=== PATIENT | male | born 1965 | race Asian ===

== ENCOUNTER 2021-09-03 10:54 | Emergency (ER) | payer OTHER, SELFPAY ==
[2021-09-03 11:10] VITALS: BP 109/77; PULSE 51; RESP 16; TEMP 37.2; O2SAT 100
--- NOTE | 2021-09-03 11:25 | ED.LOWEXIN ---
HPI - Extremity Injury (Lower) General Chief Complaint: Extremity Injury, Lower Stated Complaint: RIGHT FOOT PAIN Time Seen by Provider: 09/03/21 11:26 Source: patient Mode of arrival: ambulatory Limitations: no limitations History of Present Illness HPI Narrative: 56-year-old male presenting for complaint of left great toe redness and swelling around the toenail Endorses he has had infections on and off for several years, usually treating with Neosporin and alcohol. Patient endorses pain is only with walking. No pain at rest. Denies drainage to the site. Related Data Allergies Allergy/AdvReac Type Severity Reaction Status Date / Time No Known Allergies Allergy Verified 09/03/21 11:13 Review of Systems Review of Systems: CONSTITUTIONAL: Denies body aches, fever, chills, or sweats. EYES: Denies visual changes, redness, or discharge. CARDIOVASCULAR: Denies chest pain, palpitations, or edema. RESPIRATORY: Denies cough or dyspnea. SKIN: reports redness to toenail MUSCULOSKELETAL: Denies back pain, joint pain, or myalgia. NEUROLOGIC: Denies headache PMFSH Comments At time of signature, I have reviewed and agree with nursing past medical, surgical, social and family history unless otherwise noted. Please see nursing chart for further information. There is no relevant family history pertinent to the presenting complaint Exam Narrative: GENERAL: Well-appearing ENT: Mucous membranes moist. CHEST: Clear to auscultation. HEART: Regular rate and rhythm. SKIN: Warm, dry. Right 1st toe with mild redness and swelling to medial aspect of proximal nail fold, no active drainage or fluctuance, mild tender to palpation c/w paronychia NEURO: Alert and oriented x3. PSYCH: Normal mood and affect Course Course Emergency Course: Patient is aware of diagnosis, understands and agrees to treatment plan. Anticipatory guidance given. Patient agrees to follow-up as directed and is aware of reasons to seek care at the emergency department. Portions of this record may have been created with voice recognition software Level of Care: Express Care Visit Vital Signs Vital signs: Vital Signs Temperature 99.0 F 09/03/21 11:10 Pulse Rate 51 L 09/03/21 11:10 Respiratory Rate 16 09/03/21 11:10 Blood Pressure 109/77 09/03/21 11:10 Pulse Oximetry 100 09/03/21 11:10 Oxygen Delivery Room Air 09/03/21 11:10 Temperature 99.0 F 09/03/21 11:10 Pulse Rate 51 L 09/03/21 11:10 Respiratory Rate 16 09/03/21 11:10 Blood Pressure 109/77 09/03/21 11:10 Pulse Oximetry 100 09/03/21 11:10 Oxygen Delivery Room Air 09/03/21 11:10 Reviewed MDM - Extremity Injury (Lower) MDM Narrative Medical decision making narrative: On exam, patient does not appear to have an ingrown nail at this time, appears to be paronychia. Advised supportive measures, reviewed antibiotic, and signs/symptoms to go to the ER. Pt is appropriate for outpt treatment and f/u. Differential Diagnosis Differential diagnosis: Likely other (Paronychia, abscess, ingrown nail) Discharge Plan Discharge Clinical Impression: Paronychia of great toe Patient Disposition: Home, Self-Care Condition: Stable Instructions: Paronychia (ED) Additional Instructions: Soak the foot in warm soapy water, or use warm water with Epson salt at least twice a day Take the antibiotic as directed Keep the foot elevated when possible Tylenol 1000mg every 8 hours as needed Follow up with your primary care provider as needed in 1-2 weeks Go to the ER for worsening symptoms or concerns Prescriptions: New cephalexin 500 mg capsule 500 mg PO Q12H 7 Days Qty: 14 0RF Follow-up/Referrals: Emil,MD Billy [Primary Care Provider] - Time of Disposition: 11:37
== END 2021-09-03 11:42 | disposition home or self-care (01) ==
PROVIDERS: Emergency Provider Nurse Practitioner Family; PCP Internal Medicine
DX: L03.031 Cellulitis of right toe (principal)
CPT/HCPCS: 99203; G0463

== ENCOUNTER 2023-07-06 12:41 | Outpatient (CLI) | payer OTHER, SELFPAY ==
[2023-07-06 16:56] LABS: Influenza A QL RT-PCR Negative (Negative); Influenza B QL RT-PCR Negative (Negative); RSV RNA, RT-PCR Negative (Negative); SARS-CoV-2 RNA PCR Negative (Negative)
== END 2023-07-06 12:42 | disposition home or self-care (01) ==
PROVIDERS: PCP Emergency Medicine; Visit Provider Emergency Medicine
DX: B34.9 Viral infection, unspecified (principal); Z20.822 Contact with and (suspected) exposure to COVID-19
CPT/HCPCS: 87637

== ENCOUNTER 2023-08-21 01:11 | Day surgery (SDC) | payer OTHER, SELFPAY ==
[2023-07-06 10:36] VITALS: BMI 22.7
[2023-08-14 14:08] VITALS: BMI 22.7
[2023-08-21 13:20] VITALS: BP 101/66; PULSE 57; RESP 17; TEMP 36.2; O2SAT 98; BMI 21.2
--- NOTE | 2023-08-21 13:28 | WPDANESEPPF ---
Anes - Initial Pre Proc Eval Procedure: Operation Date: 08/21/23 14:30 Proposed Procedures p Colonoscopy - Lauro Friedman MD Date/Time: 08/21/23 13:28 Surgeon: Lauro Friedman MD Pre Op Diagnosis: IBS-D Patient Data Age: 58 Gender: M Height: 1.7 m Weight: 61.4 kg Last Vital Signs Temp 97.2 F L 08/21/23 13:20 Pulse 57 L 08/21/23 13:20 Resp 17 08/21/23 13:20 BP 101/66 08/21/23 13:20 Pulse Ox 98 08/21/23 13:20 O2 Del Method Room Air 08/21/23 13:20 Allergies Allergy/AdvReac Type Severity Reaction Status Date / Time No Known Allergies Allergy Verified 08/21/23 13:18 Home Medications Medication Instructions Recorded Confirmed Type No Home Medications 08/14/23 08/21/23 History Patient hx anesthesia problems: none Family hx anesthesia problems: none Results Review: All pre-operative results and documents have been reviewed as part of the pre-operative evaluation. [facility] Social History Social History Smoking status: Never smoker Alcohol intake: never Substance use: never Substance use type: does not use Living arrangements: with family Spiritual care concerns: No Anes - Eval Final PreProcedure Day of Procedure 08/21/23 13:28 Patient weight: normal Heart: regular rate and rhythm Lungs: clear to auscultation Airway: Mallampati scale class II Neurological: alert and oriented Last oral intake: >/= 8 hours ASA classification: I Emergent: no Anesthetic plan: proceed Anesthesia type and monitoring: general GIVS and standard monitoring Results Review: All pre-operative results and documents have been reviewed as part of the pre-operative evaluation. Informed Consent: The patient's anesthetic plan and its attendant risks and benefits were discussed with the patient/family/POA. Questions were solicited and answers provided to the satisfaction of the patient/family/POA.
[2023-08-21] MEDS: LACTATED RINGERS 1,000 ML 150 ML IV CONT (13:31)
--- NOTE | 2023-08-21 13:36 | HP_ITS ---
This report was moved to the correct visit on 08/28/2023. The original report was signed by Lauro Friedman MD on 08/21/231. History of Present Illness History of Present Illness Consent: Risks, benefits, and alternatives have been discussed and questions answered. Patient agrees to proceed with procedure. Chief complaint: IBS-C Narrative: Leyla Smith is a 58 year old male here for colonoscopy, last one more than 5 years ago, recently with constipation Review of Systems Review of Systems: All systems reviewed & are unremarkable except as noted in HPI and below PMFSH Past Medical History Medical History (Updated 08/21/23 @ 13:36 by Lauro Friedman MD) Constipation Social History Social History Smoking status: Never smoker Alcohol intake: never Substance use: never Substance use type: does not use Living arrangements: with family Spiritual care concerns: No Meds Home Medications and Allergies Home Medications Medication Instructions Recorded Confirmed Type No Home Medications 08/14/23 08/21/23 History Allergies Allergy/AdvReac Type Severity Reaction Status Date / Time No Known Allergies Allergy Verified 08/21/23 13:18 Exam Const: General: comfortable and no acute distress HENMT: Face/Nose/Sinus: Normal nares present Eyes: General: appearance normal, both eyes and all related structures Neck: Neck: no JVD Resp: Auscultation: clear to auscultation bilaterally Cardio: Rate: regular rate Rhythm: regular rhythm GI: Inspection: non-distended GI Palp: Yes Soft to palpation Skin: General skin exam: normal color Neuro: General: gait normal Speech: normal speech Extrem: General: normal to inspection Psych: Mental Status: mental status grossly normal Assessment and Plan Assessment and plan (1) Constipation: Code(s): K59.00 - Constipation, unspecified Status: Acute Assessment and Plan: colonoscopy This report may have been done utilizing a voice recognition system. Attempts have been made to correct errors. However, there may be uncorrected grammatical, spelling, and recognition errors present. Report Initialized date/time: Lauro Friedman MD 08/21/231335 Electronically signed by: Lauro Friedman MD 08/21/231335 [facility]
[2023-08-21 13:47] VITALS: BP 95/63; PULSE 62; RESP 17; O2SAT 97
[2023-08-21 13:57] VITALS: BP 88/63; PULSE 62; RESP 17; O2SAT 98
[2023-08-21 14:05] VITALS: BP 91/62; PULSE 60; RESP 17; O2SAT 98
== END 2023-08-21 14:23 | disposition home or self-care (01) ==
PROVIDERS: PCP Emergency Medicine; Referring Provider Internal Medicine; Visit Provider Internal Medicine Gastroenterology
PROC: 0DJD8ZZ Inspection of Lower Intestinal Tract, Via Natural or Artificial Opening Endoscopic (ICD-10-PCS; CPT 45378; principal; 2023-08-21 14:30)
DX: K58.1 Irritable bowel syndrome with constipation (principal); D12.5 Benign neoplasm of sigmoid colon; K64.8 Other hemorrhoids
CPT/HCPCS: 45385; 88305; J2704; J7120

== ENCOUNTER 2025-01-17 07:41 | Outpatient (CLI) | payer OTHER, SELFPAY ==
--- NOTE | ~2025-01-17 | CT_ITS ---
Leyla Smith EXAMINATION: CT abdomen pelvis w con COMPARISON: Comparison 07/23/2004. HISTORY: Lower abd pain TECHNIQUE: Axial images were obtained through the abdomen, pelvis post administration of IV contrast. Oral contrast was also administered. Coronal reconstruction images were obtained from the axial views. CT scan performed using dose optimization techniques including the following automated exposure control; adjustment of mA and/or kV; use of iterative reconstruction technique. Automatic exposure control was used to reduce radiation dose. Permanent radiation dose record is archived to PACS. FINDINGS: CT abdomen: LUNG BASES: The lung bases are clear. The visualized portions of the heart and pericardium are unremarkable. LIVER: Within the liver there are innumerable simple and complex appearing liver cysts the largest complex cyst right lobe liver 2.5 x 2.5 cm. The portal vein is patent. There is no intrahepatic biliary duct dilatation. SPLEEN: Unremarkable. KIDNEYS: Right Kidney: Right kidney subcentimeter probable renal cysts. Left Kidney: Left kidney midpole simple appearing parapelvic renal cyst 4 x 4 cm. ADRENAL GLANDS: Unremarkable. PANCREAS: Unremarkable. GALLBLADDER/BILIARY: Unremarkable. No biliary dilatation. STOMACH AND ESOPHAGUS: The stomach is decompressed. BOWEL/MESENTERY: Moderate fecal content, no colitis or diverticulitis. Appendix normal. Mesentery normal. No thickened or dilated loops of small bowel. ADENOPATHY/RETROPERITONEUM: No lymphadenopathy. AORTA/VASCULATURE: Normal caliber aorta. FREE FLUID OR FREE AIR: No free fluid.. CT pelvis: SOLID ORGANS/REPRODUCTIVE: Prostate enlarged correlate with PSA. BLADDER: Circumferential thickening of the bladder wall noted. OSSEOUS STRUCTURES: No acute osseous abnormality.No suspicious lesions. OVERLYING SOFT TISSUES: Unremarkable. IMPRESSION: 1. Mild cystitis. Incidental findings detailed above Reviewed, dictated and finalized at location P. [employer]
--- NOTE | ~2025-01-17 | US_ITS ---
US thyroid INDICATION: Thyroid nodule seen on CT TECHNIQUE: Real-time sonographic images of the thyroid gland were obtained. COMPARISON: No prior studies for comparison. FINDINGS: The right thyroid lobe measures 5.2 x 1.2 x 1.2 cm. There is 2 mm cyst in the right lobe. Left lobe measures 4.7 x 1.5 x 1.0 cm with no discrete mass. Surrounding soft tissues are unremarkable.. IMPRESSION: 1. Unremarkable thyroid without suspicious nodule or abnormal vascularity. Reviewed, dictated and finalized at location I. SAWYER
--- OUTSIDE RECORDS SUMMARY | 2025-01-17 07:45 | XMS_ITS | Data Portability ---
Author Organization [place] [facility] [employer], Main Office Address [address] [place] [address] Assessment Encounter Date Assessment Date Assessment LastModified by Organization Details LastModified Time 04/29/2022 04/29/2022 Follow-up in 6 months blood work ordered [email or web address] Not available 04/29/2022 21:57:57 10/28/2022 10/28/2022 Will get thyroid ultrasound his mother and his sister have had thyroid cancer blood work has been ordered follow-up in 6 months [email or web address] Not available 10/28/2022 22:24:44 Plan of Treatment Reminders Order Date Submit Date Provider Last Modified By Organization Details Last Modified Time Details Appointments None recorded . Lab PSA, serum or plasma 023 04/30/19 23 [employer] [facility], Jung Otero, [place], [address], 3 05:23:58 CBC w/ auto diff 023 04/30/19 23 [employer] [facility], Jung Otero, [place], [address], 3 05:23:57 CMP, serum or plasma 023 04/30/19 23 [employer] [facility], Jung Otero, [place], [address], 3 05:23:56 lipid panel, serum 023 04/30/19 23 [employer] [facility], Jung Otero, [place], [address], 3 05:23:53 Referral None recorded . Procedures None recorded . Surgeries None recorded . Imaging None recorded . Medication Orders None recorded . Patient TargetsNo targets recorded. Patient InstructionsNo instructions recorded. Reason for Referral None Reported. Results Created Date Observation Date Name Description Value Unit Range Abnormal Flag Note LastModifiedBy Organization Detail LastModifiedTime 07/18/19 22 07/17/2021 COLOG UARD cologuard result reportable negati ve negati ve NEGAT JAMMIE TEST RESUL T. A negat jammie Colog uard resul t indic ates a low likel ihood that a color ectal cance r (CRC) or advan jaya adeno ma (geri omato us polyp s with more advan jaya pre-m align ant featu res) is prese nt. The [facility] [place] e that a perso n with a negat jammie Colog uard test has a color ectal cance r is less than 1 in 1500 (nega tive predi ctive value >99.9 %) or has an advan jaya adeno ma is less than 5.3% (nega tive predi ctive value 94.7% ). These data are based on a prosp ectiv e cross -sect ional study of 10,00 0 indiv idual s at [place] risk for color ectal cance r who were scree isidra with both Colog uard and colon oscop y. (Kostas Briggs et al, N Engl J Med 2014; 370(1 4):12 86-12 97) The tyesha l value (refe rence range ) for this assay is negat jammie. COLOG UARD RE-SC ANEL DC RECOM MENDA TION: Perio dic color ectal cance r scree karis is an impor tant part of preve ntive healt hcare for asymp tomat ic indiv idual s at [place] risk for color ectal cance r. Follo wing a negat jammie Colog uard resul t, the Ameri can Cance r Socie ty and U.S. Multi -Soci ety Task Force scree karis guide lines recom mend a Colog uard re-sc anel dc inter faraz of 3 years . Refer ences : Ameri can Cance r Socie ty Guide line for Color ectal Cance r Scree karis: https ://ww w.can cer.o rg/ca ncer/ colon -rect al-ca ncer/ detec tion- diagn osis- stagi ng/ac s-rec ommen datio ns.ht ml.; Jimmy MENDOZA, Fernando urias CR, Marquise crowley JK, Color ectal Cance r Scree karis: Recom menda tions for Physi cians and Patie nts from the U.S. Multi -Soci ety Task Force on Color ectal Cance r Scree karis , Am J Nela oente rolog y 2017; 112:1 016-1 030. TEST DESCR IPTIO N: [place] site algor ithmi c denise sis of stool DNA-b bart daniels with hemog lobin immun oassa y. Quant itati ve value s of indiv idual bioma rkers are not repor table and are not assoc iated with indiv idual bioma rker resul t refer ence range s. Colog uard is inten ded for color ectal cance r scree karis of adult s of eithe r sex, 45 years or older , who are at [facility] for color ectal cance r (CRC) . Colog uard has been appro vincent for use by the U.S. FDA. The perfo rmanc e of Colog uard was estab lishe d in a cross secti onal study of [facility] adult s aged 50-84 . Colog uard perfo rmanc e in patie nts ages 45 to 49 years was estim ated by sub-g roup denise sis of near- age group s. Colon oscop ies perfo rmed for a posit jammie resul t may find as the most clini robbi signi reina malloy n: color ectal cance r [4.0% ], advan jaya adeno ma (incl uding sessi le oscar jose polyp s great er than or equal to 1cm diame ter) [20%] or non- advan jaya adeno ma [31%] ; or no color ectal neopl sherrie [45%] . These estim ates are deriv ed from a prosp ectiv e cross -sect ional scree karis study of 0 indiv idual s at [place] ge risk for color ectal cance r who were scree isidra with both Colog uard and colon oscop y. (Kostas Hernandez al, N Engl J Med 2014; 370(1 4):12 86-12 97.) Colog uard may produ ce a false negat jammie or false posit jammie resul t (no color ectal cance r or preca ncero us polyp prese nt at colon oscop y follo w up). A negat jammie Colog uard test resul t does not guara ntee the absen ce of CRC or advan jaya adeno ma (pre- cance r). The curre nt Colog uard scree karis inter faraz is every 3 years . (Amer ican Cance r Socie ty and U.S. Multi -Soci ety Task Force ). Colog uard perfo rmanc e data in a 0 patie nt pivot al study using colon oscop y as the refer ence metho d can be acces sed at the follo wing locat ion: www.e xactl abs.c om/re sullilibeth . Addit ional descr iptio n of the Colog uard test proce ss, warni ngs and preca ution s can be found at www.c sharon foxd.c om. Not Available [facility] [address], [place], [address], 07/20/2021 22:43:26 05/02/19 23 05/02/2022 LIPID PANEL , STAND GERALDO cholesterol, total 176 mg/dL <200 normal Not Available [facility] [address] [place], [address], 05/02/2022 05:23:53 05/02/19 23 05/02/2022 LIPID PANEL , STAND GERALDO HDL cholesterol 51 mg/dL > or = 40 normal Not Available [facility] [address] [place], [address], 05/02/2022 05:23:53 05/02/19 23 05/02/2022 LIPID PANEL , STAND GERALDO triglyceride s 118 mg/dL <150 normal Not Available [facility] [id number] [place] [address], [address], 05/02/2022 05:23:53 05/02/19 23 05/02/2022 LIPID PANEL , STAND GERALDO LDL-choleste rol 104 mg/dL _(mayra c) high Refer ence range : <100 Niru able range <100 mg/dL for prima ry preve ntion ; <70 mg/dL for patie nts with CHD or diabe tic patie nts with > or = 2 CHD risk facto rs. LDL-C is now calcu lated using the Ethel n-Hop kins calcu promise n, which is a valid ated novel metho d provi ding oni r accur acy than the Fried israel equat ion in the estim ation of LDL-C . Ethel mitchell SS et al. RYAN. 2013; 310(1 9): 2061- 2068 (http ://ed ucati on.Qu husseinLucidity (MemberRx). com/f aq/FA Q164) Not Available [facility] [place] [address] [place], [address], 05/02/2022 05:23:53 05/02/19 23 05/02/2022 LIPID PANEL , STAND GERALDO chol/HDLC ratio 3.5 (calc ) <5.0 normal Not Available [facility] [address] [address], [place], [address], 05/02/2022 05:23:53 05/02/19 23 05/02/2022 LIPID PANEL , STAND GERALDO non HDL cholesterol 125 mg/dL _(mayra c) <130 normal For patie nts with diabe fran plus 1 major ASCVD risk facto r, treat ing to a non-H DL-C goal of <100 mg/dL (LDL- C of <70 mg/dL ) is consi dered a thera peuti c optio n. Not Available [employer] [facility] [address] [place], [address], 05/02/2022 05:23:53 05/02/19 23 05/02/2022 COMPR EHENS JAMMIE METAB OLIC PANEL glucose 90 mg/dL 65-99 normal Fasti ng refer ence inter faraz Not Available [address], [address], 05/02/2022 05:23:56 05/02/19 23 05/02/2022 COMPR EHENS JAMMIE METAB OLIC PANEL urea nitrogen (BUN) 15 mg/dL 7-25 normal Not Available [address], [address], 05/02/2022 05:23:56 05/02/19 23 05/02/2022 COMPR EHENS JAMMIE METAB OLIC PANEL creatinine 0.87 mg/dL 0.70-1 .30 normal Not Available [address], [address], 05/02/2022 05:23:56 05/02/19 23 05/02/2022 COMPR EHENS JAMMIE METAB OLIC PANEL eGFR 99 mL/mi n/1.7 3m2 > or = 60 normal The eGFR is based on the CKD-E PI 2020 equat ion. To calcu late the new eGFR from a previ ous Creat inine or Cysta tin C resul t, go to https ://eleanor sanford.luis alfredo galicia/osvaldo ambriz s/ kdoqi /gfr% 5Fcal culat or Not Available [address], [address], 05/02/2022 05:23:56 05/02/19 23 05/02/2022 COMPR EHENS JAMMIE METAB OLIC PANEL BUN/creatini ne ratio NOT APPLIC ABLE (calc ) 6-22 Not Available [address], [address], 05/02/2022 05:23:56 05/02/19 23 05/02/2022 COMPR EHENS JAMMIE METAB OLIC PANEL sodium 140 mmol/ L 135-14 6 normal Not Available [address], [address], 05/02/2022 05:23:56 05/02/19 23 05/02/2022 COMPR EHENS JAMMIE METAB OLIC PANEL potassium 3.9 mmol/ L 3.5-5. 3 normal Not Available [address], [address], 05/02/2022 05:23:56 05/02/19 23 05/02/2022 COMPR EHENS JAMMIE METAB OLIC PANEL chloride 103 mmol/ L 98-110 normal Not Available [address], [address], 05/02/2022 05:23:56 05/02/19 23 05/02/2022 COMPR EHENS JAMMIE METAB OLIC PANEL carbon dioxide 31 mmol/ L 20-32 normal Not Available [address], [address], 05/02/2022 05:23:56 05/02/19 23 05/02/2022 COMPR EHENS JAMMIE METAB OLIC PANEL calcium 9.0 mg/dL 8.6-10 .3 normal Not Available [address], [address], 05/02/2022 05:23:56 05/02/1905/02/2022 COMPR EHENS JAMMIE METAB OLIC PANEL protein, total 6.8 g/dL 6.1-8. 1 normal Not Available [address], [address], 05/02/2022 05:23:56 05/02/19 23 05/02/2022 COMPR EHENS JAMMIE METAB OLIC PANEL albumin 4.3 g/dL 3.6-5. 1 normal Not Available [address], [address], 05/02/2022 05:23:56 05/02/19 23 05/02/2022 COMPR EHENS JAMMIE METAB OLIC PANEL globulin 2.5 g/dL_ (calc ) 1.9-3. 7 normal Not Available [address], [address], 05/02/2022 05:23:56 05/02/19 23 05/02/2022 COMPR EHENS JAMMIE METAB OLIC PANEL albumin/glob ulin ratio 1.7 (calc ) 1.0-2. 5 normal Not Available [address], [address], 05/02/2022 05:23:56 05/02/19 23 05/02/2022 COMPR EHENS JAMMIE METAB OLIC PANEL bilirubin, total 0.5 mg/dL 0.2-1. 2 normal Not Available [address], [address], 05/02/2022 05:23:56 05/02/19 23 05/02/2022 COMPR EHENS JAMMIE METAB OLIC PANEL alkaline phosphatase 60 U/L 35-144 normal Not Available [address], [address], 05/02/2022 05:23:56 05/02/19 23 05/02/2022 COMPR EHENS JAMMIE METAB OLIC PANEL AST 21 U/L 10-35 normal Not Available [address], [address], 05/02/2022 05:23:56 05/02/19 23 05/02/2022 COMPR EHENS JAMMIE METAB OLIC PANEL ALT 20 U/L 9-46 normal Not Available [address], [address], 05/02/2022 05:23:56 05/02/19 23 05/02/2022 CBC (INCL UDES DIFF/ PLT) white blood cell count 4.9 thous and/u L 3.8-10 .8 normal Not Available [address], [address], 05/02/2022 05:23:57 05/02/19 23 05/02/2022 CBC (INCL UDES DIFF/ PLT) red blood cell count 4.60 angela on/uL 4.20-5 .80 normal Not Available [address], [address], 05/02/2022 05:23:57 05/02/19 23 05/02/2022 CBC (INCL UDES DIFF/ PLT) hemoglobin 14.0 g/dL 13.2-1 7.1 normal Not Available [address], [address], 05/02/2022 05:23:57 05/02/19 23 05/02/2022 CBC (INCL UDES DIFF/ PLT) hematocrit 40.8 % 38.5-5 0.0 normal Not Available [address], [address], 05/02/2022 05:23:57 05/02/19 23 05/02/2022 CBC (INCL UDES DIFF/ PLT) MCV 88.7 fL 80.0-1 00.0 normal Not Available [address], [address], 05/02/2022 05:23:57 05/02/19 23 05/02/2022 CBC (INCL UDES DIFF/ PLT) MCH 30.4 pg 27.0-3 3.0 normal Not Available [address], [address], 05/02/2022 05:23:57 05/02/19 23 05/02/2022 CBC (INCL UDES DIFF/ PLT) MCHC 34.3 g/dL 32.0-3 6.0 normal Not Available [address], [address], 05/02/2022 05:23:57 05/02/1905/02/2022 CBC (INCL UDES DIFF/ PLT) RDW 12.1 % 11.0-1 5.0 normal Not Available [address], [address], 05/02/2022 05:23:57 05/02/1905/02/2022 CBC (INCL UDES DIFF/ PLT) platelet count 167 thous and/u L 140-40 0 normal Not Available [facility] [address], [address], 05/02/2022 05:23:57 05/02/1905/02/2022 CBC (INCL UDES DIFF/ PLT) MPV 11.5 fL 7.5-12 .5 normal Not Available [address], [address], 05/02/2022 05:23:57 05/02/1905/02/2022 CBC (INCL UDES DIFF/ PLT) absolute neutrophils 2440 cells /uL 1500-7 800 normal Not Available [address], [address], 05/02/2022 05:23:57 05/02/1905/02/2022 CBC (INCL UDES DIFF/ PLT) absolute lymphocytes 2102 cells /uL 850-39 00 normal Not Available [address], [address], 05/02/2022 05:23:57 05/02/1905/02/2022 CBC (INCL UDES DIFF/ PLT) absolute monocytes 299 cells /uL 200-95 0 normal Not Available [address], [address], 05/02/2022 05:23:57 05/02/1905/02/2022 CBC (INCL UDES DIFF/ PLT) absolute eosinophils 29 cells /uL 15-500 normal Not Available [address], [address], 05/02/2022 05:23:57 05/02/19 23 05/02/2022 CBC (INCL UDES DIFF/ PLT) absolute basophils 29 cells /uL 0-200 normal Not Available [address], [address], 05/02/2022 05:23:57 05/02/19 23 05/02/2022 CBC (INCL UDES DIFF/ PLT) neutrophils 49.8 % normal Not Available [address], [address], 05/02/2022 05:23:57 05/02/19 23 05/02/2022 CBC (INCL UDES DIFF/ PLT) lymphocytes 42.9 % normal Not Available [address], [address], 05/02/2022 05:23:57 05/02/19 23 05/02/2022 CBC (INCL UDES DIFF/ PLT) monocytes 6.1 % normal Not Available [address], [address], 05/02/2022 05:23:57 05/02/1905/02/2022 CBC (INCL UDES DIFF/ PLT) eosinophils 0.6 % normal Not Available [address], [address], 05/02/2022 05:23:57 05/02/1905/02/2022 CBC (INCL UDES DIFF/ PLT) basophils 0.6 % normal Not Available [address], [address], 05/02/2022 05:23:57 05/02/19 23 05/02/2022 PSA, TOTAL PSA, total 0.33 NG/mL < or = 4.00 normal The total PSA value from this assay syste m is stand ardiz ed again st the WHO stand geraldo. The test resul t will be appro ximat laisha 20% lower when kumar red to the equim olar- stand ardiz ed total PSA (Dowd man Coult er). Kumar rison of seria l PSA resul ts shoul d be inter prete d with this fact in mind. This test was perfo rmed using the Sieme ns chemi lumin escen t metho d. Value s obtai isidra from diffe rent assay metho ds canno t be used inter ramires eably . PSA level s, regar dless of value , shoul d not be inter prete d as absol chipewwa evide nce of the prese nce or absen ce of disea se. Not Available [facility] [address] [place], [address], 05/02/2022 05:23:58 11/01/19 23 [place], thyro id [facility] [place] [address] [place] [address] [phone] Patien t Name: LEYLA SMITH Access ion #: [id number] Sex: M : 1964 7 Dictat ed By: Lazaro Rudolph Attend ing Physic herberth: BRADLEY STEIN [facility] Physic herberth: BRADLEY STEIN Exam Date: 2022 09:59 AM Exam Name: US NECK/H EAD SOFT TISSUE Admitt ing Diagno sis(es ): ULTRAS OUND SOFT TISSUE [facility] INDICA TION: Family histor y of thyroi d cancer TECHNI QUE: Multip le real time sonogr aphic images of the thyroi d were obtain ed. COMPAR FLACO: None FINDIN GS: The right thyroi d gland measur es 4.8 x 1.0 x 0.9 cm. The left thyroi d gland measur es approx imatel y 4.9 x 1.2 x 1.1 cm. The isthmu s measur es 0.3 cm. Echoge merline solid nodule in the right superi or thyroi d measur es 0.4 cm (TR3, Mildly Suspic ious: FNA if ? 2.5 cm; Follow if ? 1.5 cm at 1, 3, and 5 y). Palpab le lump in the right subman dibula r region measur es 0.4 cm this demons trates echoge merline hilum. IMPRES AKBAR: Echoge merline solid nodule in the right superi or thyroi d measur es 0.4 cm (TR3, Mildly Suspic ious: FNA if ? 2.5 cm; Follow if ? 1.5 cm at 1, 3, and 5 y). 0.4 cm palpab le nodule in the right subman dibula r region may repres ent a morpho logica lly lymph node. Electr onical ly Signed by: Lazaro Rudolph at 2022 13:10: 38 PM Page 1 [email or web address] [facility] (Imaging) [address] [place] [address], [address], 11/07/2022 10:43:47 Result Notes None recorded. Problems Name Problem SNOMED Code Status Onset Date Resolution Date Notes Provider Name and Address Organization Details Recorded Time Syncope 605660647 Active Not Available [facility] 3 04:11:25 Thrombocytope merline disorder 274368756 Active Not Available [facility] 3 04:11:25 Hypoglycemia 373034299 Active Not Available [facility] 3 04:11:25 Acute pharyngitis 860420849 Active Not Available [facility] 3 04:11:25 Dizziness 282337480 Active Not Available [facility] 3 04:11:25 Platelet count below reference range 113897838 Active Not Available [facility] 3 04:11:25 Constipation 75016175 Active 2022 Not Available [facility] 3 04:11:25 Hyperlipidemi a 11276197 Active 2022 Not Available [facility] 3 04:11:25 Radiology result abnormal 890008631 Active 2022 Val Ramos RN [facility], [facility] [employer] 3 10:43:08 Problem Notes None recorded. Procedures Surgical History Date Name Laterality Status Provider Name and Address Organization Details Recorded Time 6 Colonoscopy completed Not Available [facility] 04/17/19 14:44:58 4 Colonoscopy completed Not Available [facility] 04/17/19 14:44:58 Imaging Results None recorded. Procedure Notes None recorded. Medical Equipment None Reported. Allergies No known drug allergies Medications Name Sig Start Date Stop Date Status Note LastModified by Organization Details LastModified Time amoxicillin 500 mg capsule TAKE 1 CAPSULE BY MOUTH TWICE DAILY 10/28 completed Not Available Not Available Not Available penicillin V potassium 500 mg tablet TK 1 T PO TID active Not Available Not Available No t Available amoxicillin 875 mg tablet TAKE 1 TABLET BY MOUTH TWICE DAILY UNTIL ALL TAKEN 04/29 completed Not Available Not Available Not Available omeprazole 20 mg capsule,jw yed release Take 1 capsule every day by oral route. 05/24 completed Not Available Not Available Not Available Levaquin 500 mg tablet Take 1 tablet every 24 hours by oral route. 06/22 completed Not Available Not Available Not Available ibuprofen 600 mg tablet 06/22 completed Not Available Not Available Not Available magnesium 05/24 completed Not Available Not Available Not Available riboflavin (vitamin B2) 05/24 completed Not Available Not Available Not Available multivitamin 05/24 completed Not Available Not Available Not Available Fluvirin 45 mcg (15 mcg x 3)/0.5 mL intramuscula r suspension active Not Available Not Available Not Available Flucelvax Quad (PF) 60 mcg (15 mcg x 4)/0.5 mL IM syringe active Not Available Not Available Not Available Vitals Date Recorded Body height Body mass index (BMI) Body weight Body temperature Heart rate Systolic And Diastolic Provider Name and Address Organization Details Last Updated DateTime 3 172.72 cm 22.2 kg/m2 32305.4 9 g 97.8 [degF] 60 /min 122/82 mm[Hg] CARMINE Figueroa [place] [employer] 3 14:13:55 Date Recorded Body mass index (BMI) Body height Heart rate Body temperature Body weight Systolic And Diastolic Provider Name and Address Organization Details Last Updated DateTime 1 21.6 kg/m2 172.72 cm 66 /min 96.9 [degF] 71386.1 2 g 110/66 mm[Hg] Not Available [facility] 3 14:46:09 Date Recorded Body mass index (BMI) Body height Heart rate Body temperature Body weight Systolic And Diastolic Provider Name and Address Organization Details Last Updated DateTime 2 22 kg/m2 172.72 cm 62 /min 96.7 [degF] 31477.8 9 g 120/70 mm[Hg] Not Available [facility] 3 14:46:09 Date Recorded Body height Body mass index (BMI) Body weight Body temperature Heart rate Systolic And Diastolic Provider Name and Address Organization Details Last Updated DateTime 3 172.72 cm 21 kg/m2 56078.7 5 g 97.7 [degF] 60 /min 120/82 mm[Hg] CARMINE Figueroa [place] [facility] 3 14:10:09 Social History Question Answer Notes LastModified by Organizat ion Details LastModified Time Tobacco Smoking Status Never Smoker Not Available [facility] 04/16/2022 14:44:35 Do You Have An Advance Directive? No [id number] Information not available 04/16/2022 Are You Blind Or Do You Have Difficulty Seeing? No [id number] Information not available 04/16/2022 What Is Your Level Of Caffeine Consumption? Moderate [id number].[id number] Information not available 04/16/2022 How Much Tobacco Do You Chew? None [id number].[id number] Information not available 04/16/2022 In The 14 Days Before Symptom Onset, Have You Had Close Contact With A Laboratory-confirm ed COVID-19 While That Case Was Ill? No [id number] Information not available 04/16/2022 In The 14 Days Before Symptom Onset, Have You Had Close Contact With A Person Who Is Under Investigation For COVID-19 While That Person Was Ill? No [id number] Information not available 04/16/2022 Are You Deaf Or Do You Have Serious Difficulty Hearing? No [id number] Information not available 04/16/2022 What Type Of Diet Are You Following? REGULAR [id number].[id number] 2606 Information not available 04/16/2022 Which Illicit Or Recreational Drugs Have You Used? None [id number].[id number] Information not available 04/16/2022 Are There Any Guns Present In Your Home? Yes [id number] Information not available 04/16/2022 What Was The Date Of Your Most Recent Tobacco Screening? 10/28/2022 [email or web address] Information not available 10/28/2022 How Much Tobacco Do You Smoke? No MIGRATION.[id number] Information not available 04/16/2022 Do You Use Sunscreen Routinely? No [id number].[id number] Information not available 04/16/2022 How Many Years Have You Smoked Tobacco? 0 MIGRATION.[id number] 1489 Information not available 04/16/2022 Do You Have Difficulty Walking Or Climbing Stairs? No MIGRATION.234571 3208 Information not available 04/16/2022 Sex: Unknown Functional Status Question Answer Note LastModified by [employer] Details LastModified Time What is your level of alcohol consumption? None [id number] Information not available 04/16/2022 Do you or have you ever used smokeless tobacco? Never used smokeless tobacco [id number].[id number] 026 Information not available 04/16/2022 Do you have difficulty doing errands alone? 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 No [id number].[id number] 026 Information not available 04/16/2022 Do you or have you ever used e-cigarettes or vape? Never used electronic cigarettes [id number].[id number] 026 Information not available 04/16/2022 What is your exercise level? Moderate MIGRATION.[id number] 026 Information not available 04/16/2022 Mental Status Question Answer Note LastModified by Organizat ion Details LastModified Time Do you have difficulty concentrating, remembering or making decisions? No [id number] Information not available 04/16/2022 Family History Relationship Description Onset Age of this Age Resolved Age Notes LastModified by Organization Details LastModified Time Mother Hyperthyroid ism [id number] Not available 04/16/2022 14:44:59 Medical History Condition Response NERVE DISEASE N BLINDNESS N RHEUMATIC FEVER N KIDNEY STONES N BLADDER PROBLEMS N MRSA N OTHER # 1 Y POLIO N LUNG DISEASE/DISORDER N RADIATION / CHEMOTHERAPY N COPD N Other # 2 N BLOOD DISEASES N SURGERY N EAR OR HEARING PROBLEMS N MUMPS N BOWEL PROBLEMS N DEPRESSION (INCLUDING POST ) N STROKE/TIA N ULCERS N BENIGN PROSTATIC HYPERPLASIA N MEASLES N MYOCARDIAL INFARCTION N OBESITY N GERD/NAUSEA Y ANEURYSM N URINARY/BLADDER/KIDNEY PROBLEMS N CORONARY ARTERY DISEASE (CAD) N ADDICTION CONCERNS N ENDOMETRIOSIS N Impotence N USE OF BLOOD THINNERS N SKIN PROBLEMS N GASTROINTESTINAL DISORDER N PERIPHERAL VASCULAR DISEASE N MUSCLE,JOINT OR BONE PROBLEMS N GASTROINTESTINAL BLEEDING N BLOOD CLOTS N ASTHMA N CATARACTS N ERECTILE DYSFUNCTION N VARICOSITIES N GI PROBLEMS N Low Testosterone N INFERTILITY N AIDS/HIV N CHEMOTHERAPY / RADIATION N LIVER DISEASE N MALE HYPOGONADISM N HYPERTENSION N Deficiency N ANXIETY DISORDER N BLOOD TRANSFUSION N ANEMIA/BLOOD DISORDER N CHRONIC EAR INFECTIONS N BRONCHITIS N TUBERCULOSIS N GLAUCOMA N FOOT PROBLEM N DIVERTICULITIS N SLEEP APNEA N CHICKENPOX N INFECTIOUS DISEASE N HEART ARRHYTHMIA N PROSTATE N INSOMNIA N HIGH CHOLESTEROL / HYPERLIPIDEMIA N HYPERTHYROIDISM N EYE PROBLEMS N NEUROLOGICAL PROBLEMS N EDEMA N CHRONIC PAIN SYNDROME N HYPOTHYROIDISM N CAROTID BLOCKAGE N CONSTIPATION N BACK / NECK PROBLEMS N ATHEROSCLEROSIS N BREAST PROBLEMS N DIALYSIS N ECZEMA N OSTEOPOROSIS N ARTHRITIS N APPENDICITIS N DIABETES, TYPE N BAD TEETH N ENT N HEARTBURN / REFLUX N AUTISM SPECTRUM DISORDER (ASD) N HEPATITIS / LIVER DISEASE N GOUT N SLEEP DISORDER N ALZHEIMER'S DISEASE N Brain Problems N HERPES N DEMENTIA N HEADACHES/MIGRAINES N SEIZURES/EPILEPSY N VASCULAR DISEASE N PACEMAKER N Blood Disorder Y DIZZINESS Y HEART DISEASE/HEART PROBLEMS N KIDNEY DISEASE N MULTIPLE SCLEROSIS N CARDIAC ARRHYTHMIA N CANCER: SPECIFY N ATRIAL FIBRILLATION N Gall Stones N PULMONARY EMBOLISM N AUTOIMMUNE DISEASE N Immunizations Vaccine Type Date Status Note Provider Nam e and Address Organization Details Recorded Time Influenza, split virus, quadrivalent, PF 3 completed CHRIS Foot[place], [place] [facility] [employer] [facility] 01/27/2023 15:52:48 Influenza, split virus, trivalent, preservative 9 completed Not Available [facility] 11/03/2022 04:11:25 Influenza, split virus, quadrivalent, preservative 7 completed Not Available [facility] 11/03/2022 04:11:25 Influenza, MDCK, quadrivalent, preservative 2 completed Not Available [facility] 11/03/2022 04:11:25 Tdap 2 completed Not Available [facility] 11/03/2022 04:11:25 COVID-19, mRNA, LNP-S, PF, 30 mcg/0.3 mL dose 1 completed Not Available [facility] 11/03/2022 04:11:25 COVID-19, mRNA, LNP-S, PF, 30 mcg/0.3 mL dose 1 completed Not Available [facility] 11/03/2022 04:11:25 COVID-19, mRNA, LNP-S, PF, 30 mcg/0.3 mL dose 1 completed Not Available [facility] 11/03/2022 04:11:25 Influenza, split virus, quadrivalent, PF 8 completed Not Available [facility] 11/03/2022 04:11:25 Past Encounters Encounter ID Performer Location Encounter Start Date Encounter Closed Date Diagnosis/Indication Diagnosis SNOMED-CT Code Diagnosis ICD10 Code Diagnosis IMO Codes Diagnosis Note [id number] Billy Stein MD [facility] Internal [facility] Andrew brooks [facility] [place] [address] [address] 05/24/2020 00:00:00 05/24/2020 13:53:08 [id number] Billy Stein MD [facility] Internal [facility] Andrew brooks [facility] [place] [address] [address] 07/09/2021 00:00:00 07/22/2021 14:27:57 [id number] Billy Stein MD [facility] Internal Med Andrew brooks [address] [place] [address] [place] [address] [place] [address] 04/29/2022 14:05:27 04/29/2022 14:59:16 Screening for cardiovascular system disease 710661850 Z13.6 Screening for malignant neoplasm of prostate 199579913 Z12.5 Constipation 87634900 9.00 [id number] Billy Stein MD [facility] Internal Med Andrew brooks [address] [facility] [address] , [place] [address] 10/28/2022 14:04:56 10/28/2022 14:56:48 Hyperlipidemia 28560547 E78.5 Family his tory of malignant neoplasm of thyroid 931865914 Z80.8 Health Concerns Section Related Observation LastModified by Organization Detai ls LastModified Time None Recorded Concern Status LastModified by Organization Details LastModified Time None Recorded Advance Directives Directive N: Payers Insurance Date Sequence Insurance Name Policy Number Policy Hooks Covered Member ID Hooks Member ID Guarantor Name 01/27/2023 1 [employer] - OPEN ACCESS [id number] [facility] [id number] [facility] Notes Date Note Type Note Provider Name and Address Organization Details Recorded Time 04/29/2022 text/html Constipation betterDyslipidemia needs check Billy Stein MD [address], [place], [address], [employer] [facility] [employer] 04/29/2022 21:58:16 10/28/2022 text/html overall he has been doing pretty good Billy Stein MD [address], [place], [address], [employer] [facility] [employer] 10/28/2022 22:25:23
[2025-01-17 08:01] LABS: Estimated Glomerular Filt Rate > 60
== END 2025-01-17 07:42 | disposition home or self-care (01) ==
PROVIDERS: PCP Emergency Medicine; Visit Provider Emergency Medicine
DX: E04.1 Nontoxic single thyroid nodule (principal); N30.90 Cystitis, unspecified without hematuria; N28.1 Cyst of kidney, acquired
CPT/HCPCS: 74177; 76536; Q9967